=== PATIENT | female | born 2000 | race Two or more races ===

== ENCOUNTER 2025-06-20 09:45 | Emergency (ER) | payer MEDICAID ==
[~2025-06-20] VITALS: Ht 167.6 cm; Wt 81.7 kg
[~2025-06-20 09:45] MED LIST: DIVA-153 PO; RISP-32 PO
[2025-06-20] MEDS ORDERED: RISP125S SQ (10:04)
[2025-06-20] MEDS ORDERED: NALT50TA33 PO (10:04)
[2025-06-20] MEDS ORDERED: MEDR150V13 IM (10:04)
[2025-06-20 10:08] VITALS: BP 121/74; PULSE 86; RESP 16; TEMP 98.2; O2SAT 97
[2025-06-20 10:18] LABS: PLATELET COUNT (AUTO) 297 K/uL (150-450); RED BLOOD CELL COUNT(AUTO) 4.33 MIL/uL (4.00-5.20); RED CELL DISTRIBUTION WIDTH 15.9 % (11.5-14.5); WHITE BLOOD COUNT (AUTO) 5.4 K/uL (4.5-11.0)
[2025-06-20 10:19] LABS: CALCIUM, TOTAL 8.9 mg/dL (8.8-10.5); CREATININE 0.55 mg/dL (0.60-1.30); GLOMERULAR FILTR. RATE CALC > 60 mL/min (>60); GLUCOSE,RANDOM 103 mg/dL (70-110); SODIUM SERUM 138 mmol/L (136-145); UREA NITROGEN, BLOOD 12 mg/dL (7-18)
[2025-06-20 11:38] LABS: COVID AG,FIA SOURCE NASAL SWAB
[2025-06-20 12:17] LABS: SARS-COV2 (COVID) ANTIGEN,FIA Negative (Negative)
[2025-06-20 12:20] LABS: APPEARANCE,URINE CLEAR (CLEAR); GLUCOSE, URINE (UA) NEGATIVE (NEGATIVE); LEUKOCYTE ESTERASE ,URINE NEGATIVE (NEGATIVE); NITRATE,URINE NEGATIVE (NEGATIVE); OCCULT BLOOD,URINE NEGATIVE (NEGATIVE); PH,URINE DRUG SCREEN 7.0 (5.0-8.0); SPECIFIC GRAVITIY, URINE 1.011 (1.003-1.030)
[2025-06-20 12:39] LABS: AMPHET/METH SCREEN,URINE NEGATIVE (NEGATIVE); BARBITURATE SCREEN, URINE NEGATIVE (NEGATIVE); CANNABINOID SCREEN,URINE NEGATIVE (NEGATIVE); COCAINE SCREEN,URINE NEGATIVE (NEGATIVE); METHADONE SCREEN, URINE NEGATIVE (NEGATIVE)
[2025-06-20] MEDS: LORazepam 2 MG/ML VIAL IM ONE (12:50)
[2025-06-20 12:55] LABS: ALCOHOL, URINE DRUG SCREEN NEGATIVE (NEGATIVE)
== END 2025-06-20 13:41 | disposition home or self-care (01) ==
LOC: EMS 09:45
DX: F25.1 Schizoaffective disorder, depressive type (principal); F31.9 Bipolar disorder, unspecified; Z79.3 Long term (current) use of hormonal contraceptives; Z79.899 Other long term (current) drug therapy; Z20.822 Contact with and (suspected) exposure to COVID-19
CPT/HCPCS: 99284; 87426; 80048; 81003; 85025; 36415; 96372; 80307; G0480; J1200; J1630; J2060